=== PATIENT | male | born 1935 | race Caucasian/White ===

== ENCOUNTER 2023-12-21 08:22 | Inpatient (IN) | payer OTHER ==
[~2023-12-21] VITALS: Ht 167.6 cm; Wt 61.7 kg
[2023-12-21] MEDS ORDERED: LORazepam 2 MG/ML VIAL ONE (08:41)
[2023-12-21] MEDS: levETIRAcetam 1,000 MG in NS 90 ML IV ONE (08:46)
[2023-12-21 08:50] VITALS: BP_SYST 137; PULSE 85; RESP 11; TEMP 97.8; O2SAT 95
[2023-12-21] MEDS: LORazepam 2 MG/ML VIAL IVP ONE (08:52)
[2023-12-21 09:09] LABS: BASOPHILS % (AUTO) 0.1 % (0.0-2.0); EOSINOPHILS # (AUTO) 0.1 K/uL (0.0-0.4); EOSINOPHILS % (AUTO) 0.8 % (0.0-4.0); HEMATOCRIT 46.7 % (36-54); HEMOGLOBIN 15.6 g/dL (14.0-18.0); LYMPHOCYTES # (AUTO) 2.6 K/uL (1.0-5.5); LYMPHOCYTES % (AUTO) 18.1 % (20.5-51.5); MEAN CORPUSCULAR HEMOGLOBIN 29 pg (27-31); MEAN CORPUSCULAR HGB CONC 33 % (32-36); MEAN CORPUSCULAR VOLUME 87 fL (79.0-98.0); MONOCYTES # (AUTO) 0.9 K/uL (0.0-1.0); MONOCYTES % (AUTO) 6.4 % (1.7-9.3); NEUTROPHILS # (AUTO) 10.9 K/uL (1.8-7.7); NEUTROPHILS % (AUTO) 74.6 % (40.0-70.0); PLATELET COUNT (AUTO) 272 K/uL (130-430); RED BLOOD CELL COUNT(AUTO) 5.35 MIL/uL (4.2-6.2); RED CELL DISTRIBUTION WIDTH 15.9 % (9.0-15.0); WHITE BLOOD COUNT (AUTO) 14.6 K/uL (4.8-10.8)
[2023-12-21 09:28] LABS: ANION GAP 15 (5-15); CALCIUM 9.8 mg/dL (8.4-11.0); CARBON DIOXIDE 28 mmol/L (23-29); CHLORIDE 94 mmol/L (98-107); CHOLESTEROL 139 mg/dL (<200); CREATININE 1.44 mg/dL (0.55-1.30); GLUCOSE 399 mg/dL (74-106); HDL CHOLESTEROL 56 mg/dL (>45); INR 1.9 (0.80-1.20); PROTHROMBIN TIME 19.1 SECS (9.5-12.5); SODIUM SERUM 137 mmol/L (136-145); TRIGLYCERIDES 138 mg/dL (30-150); UREA NITROGEN, BLOOD 17 mg/dL (8-21)
[2023-12-21 09:35] LABS: HEMOGLOBIN A1C 12.47 % (<5.7)
[2023-12-21] MEDS ORDERED: iohexoL 350 mgI/mL, 100 ML INFUS..BTL IV ONE (09:38)
[2023-12-21] MEDS ORDERED: ACET325C6 PO (10:26)
[2023-12-21] MEDS ORDERED: WARF4TAB72 PO (10:26)
[2023-12-21] MEDS ORDERED: LEVO125T8 PO (10:26)
[2023-12-21] MEDS ORDERED: ATEN50TA PO (10:26)
[2023-12-21] MEDS ORDERED: LORA-258 PO (10:26)
[2023-12-21] MEDS ORDERED: SERT-436 PO (10:26)
[2023-12-21] MEDS ORDERED: METF-1069 PO (10:26)
[2023-12-21] MEDS ORDERED: IPRA4AER INH (10:26)
[2023-12-21] MEDS ORDERED: HYOS-7 PO (10:26)
[2023-12-21] MEDS ORDERED: PROC10TA29 PO (10:26)
[2023-12-21] MEDS ORDERED: FURO-149 PO (10:26)
[2023-12-21] MEDS ORDERED: MOM PO (10:26)
[2023-12-21] MEDS ORDERED: TAMS-11 PO (10:26)
[2023-12-21] MEDS ORDERED: FAMO20TA8 PO (10:26)
[2023-12-21] MEDS ORDERED: BISA-140 PO (10:26)
[2023-12-21] MEDS ORDERED: NITSL SL (10:26)
[2023-12-21] MEDS ORDERED: HYDR-3917 PO (10:26)
[2023-12-21] MEDS ORDERED: FLEETMO RC (10:26)
[2023-12-21] MEDS ORDERED: LIP10 PO (10:26)
[2023-12-21 10:39] LABS: BILIRUBIN,URINE NEGATIVE (NEGATIVE); BLOOD, URINE 2+ (NEGATIVE); CLARITY/URINE CLEAR (CLEAR); COLOR,URINE YELLOW (YELLOW); GLUCOSE,URINE 3+ (NEGATIVE); KETONES,URINE TRACE (NEGATIVE); LEUKOCYTE ESTERASE ,URINE NEGATIVE (NEGATIVE); NITRITE, URINE NEGATIVE (NEGATIVE); PROTEIN URINE NEGATIVE (NEGATIVE); UROBILINOGEN,URINE 0.2 (0.2-1.0)
[2023-12-21] MEDS ORDERED: GLUCOSE (DEXTROSE) ORAL GEL -Adults PO PRN (10:45)
[2023-12-21] MEDS ORDERED: HYDROcodone/ACETAMIN 5-325 MG TAB (NORCO/ VICODIN) PO PRN (10:45)
[2023-12-21] MEDS ORDERED: ACETAMINOPHEN 325 MG TABLET PO PRN ×2 (10:45→15:45)
[2023-12-21] MEDS ORDERED: MORPHINE 2 MG/ML INJ. SYRINGE IVP PRN (10:45)
[2023-12-21] MEDS ORDERED: HYDROcodone/ACETAMIN 10-325 MG TAB PO PRN (10:45)
[2023-12-21] MEDS ORDERED: DEXTROSE 50% JECT 50 ML DISP.SYRIN IVP PRN (10:45)
[2023-12-21] MEDS ORDERED: ONDANSETRON HCL 4 MG/2 ML VIAL IVP PRN (10:45)
[2023-12-21] MEDS ORDERED: NITROGLYCERIN 0.4 MG TAB.SUBL SL PRN ×2 (11:00→15:41)
[2023-12-21 11:01] LABS: BARBITURATE, URINE NEGATIVE (NEG <=200)
[2023-12-21 11:02] LABS: BENZODIAZEPINE, URINE NEGATIVE (NEG <=150); CANNABINOID, URINE NEGATIVE (NEG <=50); COCAINE, URINE NEGATIVE (NEG <=150); METHAMPHETAMINES SCREEN,URINE NEGATIVE (NEG <=500); OPIATE, URINE NEGATIVE (NEG <=100); PHENCYCLIDINE SCREEN,URINE NEGATIVE (NEG <=25); UR TRICYCLIC ANTIDEPRESSANTS NEGATIVE (NEG <=300); URINE AMPHETAMINE NEGATIVE (NEG <=500); URINE METHADONE NEGATIVE (NEG <=200); URINE OXYCODONE SCREEN NEGATIVE (NEG <=100)
[2023-12-21 11:07] LABS: BACTERIA,URINE None Seen /HPF (None Seen); MUCUS,URINE 1+ /LPF (None Seen); WBC,URINE 0-3 /HPF (0-3)
[2023-12-21] MEDS ORDERED: BISA10SU77 RC (15:00)
[2023-12-21 16:15] VITALS: BP_SYST 159; PULSE 80; RESP 20; TEMP 97.9; O2SAT 95
[2023-12-21 16:29] VITALS: BP_SYST 135; PULSE 80; RESP 18; TEMP 97; O2SAT 96
[2023-12-21] MEDS ORDERED: WARFARIN SODIUM 4 MG TABLET PO ONE (17:00)
[2023-12-21 20:05] VITALS: BP_SYST 138; PULSE 75; RESP 16; TEMP 97.6; O2SAT 98
[2023-12-21] MEDS ORDERED: levETIRAcetam 500 MG TABLET PO SCH (21:00)
[2023-12-21] MEDS ORDERED: NACL 0.9% 1,000 ML IV SCH (22:15)
[2023-12-21] MEDS ORDERED: LORazepam 2 MG/ML VIAL IVP PRN (22:15)
[2023-12-21] MEDS ORDERED: POTASSIUM CHLORIDE 40 MEQ, LIDOCAINE JECT 2% PF 100 MG 50 MG in NS 250 ML IV ONE (22:30)
[2023-12-21] MEDS ORDERED: KCL 40 mEq in 100 mL (PREMIX) 100 ML IV ONE (22:30)
[2023-12-21] MEDS: KCL 20 mEq in 100 mL (PREMIX) 100 ML IV SCH (22:51)
[2023-12-21] MEDS: NACL 0.9% 1,000 ML IV SCH (22:52)
[2023-12-21] MEDS: INSULIN GLARGINE 100 UNITS/ML, 10 ML VIAL SUBCUT SCH (22:54)
[2023-12-21] MEDS: levETIRAcetam 1,000 MG in NS 100 ML IV ONE (23:05)
[2023-12-21] MEDS: WARFARIN SODIUM 4 MG TABLET PO ONE (23:22)
[2023-12-22] VITALS (7 sets, daily range): BP systolic 118–150; PULSE 14–79; RESP 16–20; TEMP 97.3–97.9; O2SAT 96–100
[2023-12-22 04:33] LABS: BASOPHILS % (AUTO) 0.2 % (0.0-2.0); EOSINOPHILS # (AUTO) 0.1 K/uL (0.0-0.4); EOSINOPHILS % (AUTO) 0.7 % (0.0-4.0); HEMATOCRIT 41.7 % (36-54); HEMOGLOBIN 14.1 g/dL (14.0-18.0); LYMPHOCYTES # (AUTO) 1.6 K/uL (1.0-5.5); LYMPHOCYTES % (AUTO) 11.5 % (20.5-51.5); MEAN CORPUSCULAR HEMOGLOBIN 29 pg (27-31); MEAN CORPUSCULAR HGB CONC 34 % (32-36); MEAN CORPUSCULAR VOLUME 86 fL (79.0-98.0); MONOCYTES # (AUTO) 1.1 K/uL (0.0-1.0); MONOCYTES % (AUTO) 7.8 % (1.7-9.3); NEUTROPHILS # (AUTO) 10.9 K/uL (1.8-7.7); NEUTROPHILS % (AUTO) 79.8 % (40.0-70.0); PLATELET COUNT (AUTO) 267 K/uL (130-430); RED BLOOD CELL COUNT(AUTO) 4.86 MIL/uL (4.2-6.2); RED CELL DISTRIBUTION WIDTH 15.6 % (9.0-15.0); WHITE BLOOD COUNT (AUTO) 13.7 K/uL (4.8-10.8)
[2023-12-22 04:43] LABS: PROTHROMBIN TIME 20.2 SECS (9.5-12.5)
[2023-12-22 04:53] LABS: ALANINE AMINOTRANSFERASE 14 U/L (12-78); ANION GAP 5 (5-15); ASPARTATE AMINOTRANSFERASE 15 U/L (10-37); CALCIUM 9.6 mg/dL (8.4-11.0); CARBON DIOXIDE 33 mmol/L (23-29); CHLORIDE 100 mmol/L (98-107); CREATININE 0.85 mg/dL (0.55-1.30); GLUCOSE 276 mg/dL (74-106); POTASSIUM 3.7 mmol/L (3.5-5.1); SODIUM SERUM 138 mmol/L (136-145); TOTAL BILIRUBIN 0.5 mg/dL (0.0-1.0); TOTAL PROTEIN, SERUM 7.2 g/dL (6.4-8.3); UREA NITROGEN, BLOOD 16 mg/dL (8-21)
[2023-12-22] MEDS: INSULIN REGULAR, HUMAN 100 UNITS/ML, 3 ML VIAL (humuLIN R) SUBCUT PRN (06:09)
[2023-12-22] MEDS: levETIRAcetam 1,000 MG IV BAG 100 ML IV SCH (09:33)
[2023-12-22] MEDS: LEVOTHYROXINE SODIUM 0.125 MG TABLET PO SCH (12:38)
[2023-12-22] MEDS: TAMSULOSIN HCL 0.4 MG CAP PO SCH (12:38)
[2023-12-22] MEDS: SERTRALINE HCL 50 MG TABLET PO SCH (12:38)
[2023-12-22] MEDS: ATORVASTATIN 10 MG TABLET PO SCH (12:38)
[2023-12-22] MEDS: MILK OF MAGNESIA 30 ML UDC PO SCH (12:38)
[2023-12-22] MEDS: WARFARIN SODIUM 4 MG TABLET PO SCH (17:24)
[2023-12-22] MEDS: NYSTATIN 15 GM TOPICAL POWDER TP SCH (17:36)
[2023-12-23 01:35] VITALS: BP_SYST 132; PULSE 74; RESP 16; TEMP 96.8; O2SAT 98
[2023-12-23 06:59] LABS: BASOPHILS % (AUTO) 0.3 % (0.0-2.0); EOSINOPHILS # (AUTO) 0.2 K/uL (0.0-0.4); EOSINOPHILS % (AUTO) 1.7 % (0.0-4.0); HEMATOCRIT 39.4 % (36-54); HEMOGLOBIN 13.2 g/dL (14.0-18.0); LYMPHOCYTES # (AUTO) 2.1 K/uL (1.0-5.5); LYMPHOCYTES % (AUTO) 17.6 % (20.5-51.5); MEAN CORPUSCULAR HEMOGLOBIN 29 pg (27-31); MEAN CORPUSCULAR HGB CONC 34 % (32-36); MEAN CORPUSCULAR VOLUME 86 fL (79.0-98.0); MONOCYTES # (AUTO) 0.9 K/uL (0.0-1.0); MONOCYTES % (AUTO) 8.1 % (1.7-9.3); NEUTROPHILS # (AUTO) 8.5 K/uL (1.8-7.7); NEUTROPHILS % (AUTO) 72.3 % (40.0-70.0); PLATELET COUNT (AUTO) 238 K/uL (130-430); RED BLOOD CELL COUNT(AUTO) 4.57 MIL/uL (4.2-6.2); RED CELL DISTRIBUTION WIDTH 16.4 % (9.0-15.0); WHITE BLOOD COUNT (AUTO) 11.7 K/uL (4.8-10.8)
[2023-12-23 07:13] LABS: INR 2.9 (0.80-1.20); PROTHROMBIN TIME 28.8 SECS (9.5-12.5)
[2023-12-23 07:17] LABS: ALANINE AMINOTRANSFERASE 13 U/L (12-78); ALBUMIN 2.6 g/dL (3.4-4.8); ANION GAP 7 (5-15); ASPARTATE AMINOTRANSFERASE 16 U/L (10-37); CALCIUM 9.3 mg/dL (8.4-11.0); CARBON DIOXIDE 33 mmol/L (23-29); CHLORIDE 108 mmol/L (98-107); GLUCOSE 67 mg/dL (74-106); SODIUM SERUM 148 mmol/L (136-145); TOTAL BILIRUBIN 0.4 mg/dL (0.0-1.0); TOTAL PROTEIN, SERUM 6.4 g/dL (6.4-8.3); UREA NITROGEN, BLOOD 13 mg/dL (8-21)
[2023-12-23 07:23] LABS: POTASSIUM 2.9 mmol/L (3.5-5.1)
[2023-12-23 08:02] VITALS: O2SAT 97
[2023-12-23 08:13] VITALS: BP_SYST 132; PULSE 73; RESP 18; TEMP 97.6; O2SAT 97
[2023-12-23] MEDS: D5NS 1,000 ML IV SCH (10:02)
[2023-12-23 11:27] VITALS: BP_SYST 154; PULSE 76; RESP 16; TEMP 97.7; O2SAT 97
[2023-12-23] MEDS: POTASSIUM CHLORIDE 40 MEQ, LIDOCAINE JECT 2% PF 100 MG 50 MG in NS 250 ML IV ONE (11:30)
[2023-12-23 17:42] VITALS: BP_SYST 143; PULSE 60; RESP 17; TEMP 97; O2SAT 100
[2023-12-23] MEDS: CLOPIDOGREL BISULFATE 75 MG TABLET PO ONE (17:47)
[2023-12-23] MEDS: ASPIRIN 81 MG TAB.CHEW PO ONE (17:47)
[2023-12-23 20:45] VITALS: BP_SYST 131; PULSE 81; RESP 16; O2SAT 99
[2023-12-24 00:45] VITALS: BP_SYST 140; PULSE 77; RESP 16; TEMP 97.8; O2SAT 99
[2023-12-24 06:06] LABS: INR 2.2 (0.80-1.20); PROTHROMBIN TIME 21.5 SECS (9.5-12.5)
[2023-12-24 07:49] VITALS: BP_SYST 134; PULSE 70; RESP 16; O2SAT 97
[2023-12-24 08:00] VITALS: O2SAT 96
[2023-12-24] MEDS: ASPIRIN 81 MG TAB.CHEW PO SCH (10:03)
[2023-12-24] MEDS: CLOPIDOGREL BISULFATE 75 MG TABLET PO SCH (10:05)
[2023-12-24 10:53] LABS: BASOPHILS % (AUTO) 0.2 % (0.0-2.0); EOSINOPHILS # (AUTO) 0.3 K/uL (0.0-0.4); EOSINOPHILS % (AUTO) 1.9 % (0.0-4.0); HEMOGLOBIN 13.5 g/dL (14.0-18.0); LYMPHOCYTES # (AUTO) 1.4 K/uL (1.0-5.5); LYMPHOCYTES % (AUTO) 10.6 % (20.5-51.5); MEAN CORPUSCULAR HEMOGLOBIN 29 pg (27-31); MEAN CORPUSCULAR HGB CONC 34 % (32-36); MEAN CORPUSCULAR VOLUME 87 fL (79.0-98.0); NEUTROPHILS # (AUTO) 10.4 K/uL (1.8-7.7); NEUTROPHILS % (AUTO) 79.3 % (40.0-70.0); PLATELET COUNT (AUTO) 217 K/uL (130-430); RED BLOOD CELL COUNT(AUTO) 4.62 MIL/uL (4.2-6.2); RED CELL DISTRIBUTION WIDTH 15.9 % (9.0-15.0); WHITE BLOOD COUNT (AUTO) 13.1 K/uL (4.8-10.8)
[2023-12-24 11:27] LABS: ALANINE AMINOTRANSFERASE 13 U/L (12-78); ALBUMIN 2.4 g/dL (3.4-4.8); ANION GAP 4 (5-15); ASPARTATE AMINOTRANSFERASE 22 U/L (10-37); CARBON DIOXIDE 29 mmol/L (23-29); CHLORIDE 109 mmol/L (98-107); CREATININE 0.69 mg/dL (0.55-1.30); GLUCOSE 221 mg/dL (74-106); SODIUM SERUM 142 mmol/L (136-145); TOTAL BILIRUBIN 0.4 mg/dL (0.0-1.0); TOTAL PROTEIN, SERUM 6.3 g/dL (6.4-8.3); UREA NITROGEN, BLOOD 12 mg/dL (8-21)
[2023-12-24 12:00] VITALS: BP_SYST 148; PULSE 77; RESP 16; TEMP 97.4; O2SAT 99
[2023-12-24 16:00] VITALS: BP_SYST 165; PULSE 65; RESP 16; TEMP 97.5; O2SAT 97
[2023-12-24] MEDS: CEFEPIME 2 GM in D5W 100 ML IV ONE (17:42)
[2023-12-24 20:00] VITALS: BP_SYST 153; PULSE 67; RESP 18; TEMP 98; O2SAT 99
[2023-12-25 00:16] VITALS: BP_SYST 141; PULSE 64; RESP 18; TEMP 97.6; O2SAT 97
[2023-12-25 05:51] LABS: INR 1.7 (0.80-1.20); PROTHROMBIN TIME 17.6 SECS (9.5-12.5)
[2023-12-25 05:54] LABS: BASOPHILS % (AUTO) 0.4 % (0.0-2.0); EOSINOPHILS # (AUTO) 0.3 K/uL (0.0-0.4); EOSINOPHILS % (AUTO) 2.4 % (0.0-4.0); HEMATOCRIT 37.1 % (36-54); HEMOGLOBIN 12.3 g/dL (14.0-18.0); LYMPHOCYTES # (AUTO) 1.8 K/uL (1.0-5.5); LYMPHOCYTES % (AUTO) 16.9 % (20.5-51.5); MEAN CORPUSCULAR HEMOGLOBIN 29 pg (27-31); MEAN CORPUSCULAR HGB CONC 33 % (32-36); MEAN CORPUSCULAR VOLUME 86 fL (79.0-98.0); MONOCYTES # (AUTO) 0.8 K/uL (0.0-1.0); MONOCYTES % (AUTO) 7.2 % (1.7-9.3); NEUTROPHILS # (AUTO) 7.9 K/uL (1.8-7.7); NEUTROPHILS % (AUTO) 73.1 % (40.0-70.0); PLATELET COUNT (AUTO) 248 K/uL (130-430); RED BLOOD CELL COUNT(AUTO) 4.29 MIL/uL (4.2-6.2); RED CELL DISTRIBUTION WIDTH 15.7 % (9.0-15.0); WHITE BLOOD COUNT (AUTO) 10.8 K/uL (4.8-10.8)
[2023-12-25 06:06] LABS: ALANINE AMINOTRANSFERASE 14 U/L (12-78); ALBUMIN 2.3 g/dL (3.4-4.8); ANION GAP 6 (5-15); ASPARTATE AMINOTRANSFERASE 18 U/L (10-37); CALCIUM 8.7 mg/dL (8.4-11.0); CARBON DIOXIDE 29 mmol/L (23-29); CHLORIDE 105 mmol/L (98-107); CREATININE 0.59 mg/dL (0.55-1.30); GLUCOSE 210 mg/dL (74-106); POTASSIUM 3.8 mmol/L (3.5-5.1); SODIUM SERUM 140 mmol/L (136-145); TOTAL BILIRUBIN 0.5 mg/dL (0.0-1.0); TOTAL PROTEIN, SERUM 5.8 g/dL (6.4-8.3); UREA NITROGEN, BLOOD 14 mg/dL (8-21)
[2023-12-25 08:26] VITALS: BP_SYST 144; PULSE 71; RESP 12; TEMP 97.5
[2023-12-25 08:30] VITALS: BP_SYST 144; PULSE 71; O2SAT 97
[2023-12-25] MEDS: CEFEPIME 2 GM in D5W 100 ML IV SCH (09:23)
[2023-12-25 12:01] VITALS: BP_SYST 147; PULSE 93; RESP 18; TEMP 98; O2SAT 96
[2023-12-25 16:28] VITALS: BP_SYST 141; PULSE 94; RESP 17; TEMP 97.5; O2SAT 97
[2023-12-25] MEDS ORDERED: WARFARIN SODIUM 5 MG TABLET PO SCH (18:00)
[2023-12-25 20:00] VITALS: BP_SYST 126; PULSE 85; RESP 16; TEMP 97.9; O2SAT 93
[2023-12-26 01:24] VITALS: BP_SYST 130; PULSE 88; RESP 18; TEMP 98.2; O2SAT 95
[2023-12-26 05:29] LABS: BASOPHILS % (AUTO) 0.3 % (0.0-2.0); EOSINOPHILS # (AUTO) 0.2 K/uL (0.0-0.4); EOSINOPHILS % (AUTO) 1.6 % (0.0-4.0); HEMOGLOBIN 12.7 g/dL (14.0-18.0); LYMPHOCYTES # (AUTO) 1.7 K/uL (1.0-5.5); LYMPHOCYTES % (AUTO) 15.3 % (20.5-51.5); MEAN CORPUSCULAR HEMOGLOBIN 29 pg (27-31); MEAN CORPUSCULAR HGB CONC 33 % (32-36); MEAN CORPUSCULAR VOLUME 86 fL (79.0-98.0); MONOCYTES # (AUTO) 1.2 K/uL (0.0-1.0); MONOCYTES % (AUTO) 10.6 % (1.7-9.3); NEUTROPHILS # (AUTO) 8.2 K/uL (1.8-7.7); NEUTROPHILS % (AUTO) 72.2 % (40.0-70.0); PLATELET COUNT (AUTO) 256 K/uL (130-430); RED BLOOD CELL COUNT(AUTO) 4.43 MIL/uL (4.2-6.2); WHITE BLOOD COUNT (AUTO) 11.3 K/uL (4.8-10.8)
[2023-12-26 05:45] LABS: INR 1.6 (0.80-1.20); PROTHROMBIN TIME 16.3 SECS (9.5-12.5)
[2023-12-26 05:53] LABS: ALANINE AMINOTRANSFERASE 15 U/L (12-78); ALBUMIN 2.2 g/dL (3.4-4.8); ANION GAP 5 (5-15); ASPARTATE AMINOTRANSFERASE 17 U/L (10-37); CALCIUM 8.8 mg/dL (8.4-11.0); CARBON DIOXIDE 29 mmol/L (23-29); CHLORIDE 104 mmol/L (98-107); CREATININE 0.59 mg/dL (0.55-1.30); GLUCOSE 91 mg/dL (74-106); POTASSIUM 3.8 mmol/L (3.5-5.1); SODIUM SERUM 138 mmol/L (136-145); TOTAL BILIRUBIN 0.6 mg/dL (0.0-1.0); TOTAL PROTEIN, SERUM 6.4 g/dL (6.4-8.3); UREA NITROGEN, BLOOD 13 mg/dL (8-21)
[2023-12-26 08:12] VITALS: BP_SYST 139; PULSE 80; RESP 16; TEMP 97; O2SAT 98
[2023-12-26 08:15] VITALS: O2SAT 98
[2023-12-26 11:12] VITALS: BP_SYST 115; PULSE 83; RESP 16; TEMP 97.1; O2SAT 96
[2023-12-26 15:10] VITALS: BP_SYST 126; PULSE 88; RESP 15; TEMP 97.7; O2SAT 93
[2023-12-26] MEDS ORDERED: METF-380 PO (15:45)
[2023-12-26] MEDS ORDERED: ASA81 PO (15:45)
[2023-12-26] MEDS ORDERED: LEVE1000 PO (15:45)
[2023-12-26 20:05] VITALS: BP_SYST 116; PULSE 95; RESP 18; TEMP 97.7; O2SAT 97
[2023-12-27 00:55] VITALS: BP_SYST 118; PULSE 90; RESP 16; TEMP 97.9; O2SAT 97
[2023-12-27 08:00] VITALS: BP_SYST 126; PULSE 92; RESP 17; TEMP 97.6; O2SAT 96
[2023-12-27 11:08] VITALS: BP_SYST 108; PULSE 99; RESP 18; TEMP 98.8; O2SAT 99
[2023-12-27 16:08] VITALS: BP_SYST 125; PULSE 99; RESP 18; TEMP 98.2; O2SAT 96
[2023-12-27 20:30] VITALS: BP_SYST 116; PULSE 96; RESP 18; TEMP 98.4; O2SAT 95
[2023-12-27] MEDS: MENTHOL/ZINC OXIDE 113 GM OINT. TP SCH (21:18)
[2023-12-28 00:41] VITALS: BP_SYST 125; PULSE 98; RESP 18; TEMP 97.6; O2SAT 96
[2023-12-28 07:48] VITALS: BP_SYST 130; PULSE 76; RESP 18; TEMP 98.3; O2SAT 97
[2023-12-28 08:00] VITALS: O2SAT 97
[2023-12-28 08:07] VITALS: BP_SYST 130; PULSE 76; O2SAT 97
[2023-12-28 10:58] VITALS: BP_SYST 120; PULSE 77; RESP 18; TEMP 98.2; O2SAT 94
[2023-12-28 11:29] VITALS: BP_SYST 109; PULSE 94; RESP 16; TEMP 98; O2SAT 98
== END 2023-12-28 12:22 | DRG 64 ==
LOC: SED 08:22 → STU 10:50 → SMU 12-25 11:27
PROVIDERS: ADMIT Family Medicine; ATTEND Family Medicine
DX: I63.9 Cerebral infarction, unspecified (principal); J96.21 Acute and chronic respiratory failure with hypoxia; E44.1 Mild protein-calorie malnutrition; G81.91 Hemiplegia, unspecified affecting right dominant side; G93.40 Encephalopathy, unspecified; E03.9 Hypothyroidism, unspecified; F03.90 Unspecified dementia, unspecified severity, without behavioral disturbance, psychotic disturbance, mood disturbance, and anxiety; I10 Essential (primary) hypertension; G40.409 Other generalized epilepsy and epileptic syndromes, not intractable, without status epilepticus; Z68.22 Body mass index [BMI] 22.0-22.9, adult; R29.810 Facial weakness; E87.5 Hyperkalemia; E11.65 Type 2 diabetes mellitus with hyperglycemia; Z79.82 Long term (current) use of aspirin; Z79.899 Other long term (current) drug therapy; Z79.01 Long term (current) use of anticoagulants
CPT/HCPCS: 36415; 70450; 70496; 70498; 70551; 71045; 80048; 80053; 80061; 80307; 81000; 81001; 81015; 82948; 83037; 84484; 85025; 85610; 85730; 86886; 86900; 86901; 87040; 87081; 92610-GN; 93005; 94760; 95816; 96365; 96375; 97110-GP; 97112-GP; 97530-GP; 99291; G0378; J0692; J1815; J1953; J2060; J3480; J7050; J7060; Q9967